=== PATIENT | female | born 1980 | race African-American/Black ===

== ENCOUNTER 2017-02-14 08:22 | Emergency (ER) | payer MEDICARE, MEDICAID ==
[~2017-02-14] VITALS: Ht 162.6 cm; Wt 145.0 kg
[2017-02-14 08:25] VITALS: BP 156/91
[2017-02-14] MEDS ORDERED: FURO-151 PO (08:33)
== END 2017-02-14 08:57 | disposition left against medical advice (07) ==
LOC: ER 08:34
DX: R06.02 Shortness of breath (principal); Z53.21 Procedure and treatment not carried out due to patient leaving prior to being seen by health care provider